=== PATIENT | male | born 1945 | race Caucasian/White ===

== ENCOUNTER 2018-06-14 10:11 | Day surgery (SDC) | payer MEDICARE ==
[~2018-06-14] VITALS: Ht 180.3 cm; Wt 66.3 kg
[2018-06-14] MEDS ORDERED: OMEP-110 PO (11:13)
[2018-06-14] MEDS ORDERED: CITA20TA6 PO (11:13)
[2018-06-14] MEDS ORDERED: CARV6.252 PO (11:13)
[2018-06-14] MEDS ORDERED: RISP0.2515 PO (11:13)
[2018-06-14] MEDS ORDERED: ATOR20TA86 PO (11:13)
[2018-06-14] MEDS ORDERED: LISI5TAB7 PO (11:13)
[2018-06-14] MEDS ORDERED: ASPI-496 PO (11:13)
[2018-06-14 11:16] VITALS: BP 111/77
[2018-06-14] MEDS ORDERED: LACTATED RINGERS 1,000 ML IV SCH (11:24)
[2018-06-14] MEDS ORDERED: EPHEDRINE 50 MG/ML, 1ML ONE (12:34)
[2018-06-14] MEDS ORDERED: PROPOFOL 10 MG/ML, 20ML ONE (12:34)
[2018-06-14 13:15] LABS: ALBUMIN 3.8 g/dL (3.4-5.0); ANION GAP 6 mmol/L (5-15); CALCIUM 9.2 mg/dL (8.5-10.1); CHLORIDE 116 mmol/L (98-107)
[2018-06-14 13:20] LABS: ALANINE AMINOTRANSFERASE 54 U/L (12-78); ALKALINE PHOSPHATASE 82 U/L (45-117); BILIRUBIN,TOTAL 0.6 mg/dL (0.2-1.0); CREATININE 2.31 mg/dL (0.7-1.3); TOTAL PROTEIN 7.5 g/dL (6.4-8.2)
[2018-06-14] MEDS ORDERED: MIDAZOLAM 1 MG/ML, 2ML IV PRN (13:30)
[2018-06-14] MEDS ORDERED: ONDANSETRON 2MG/ML, 2ML IV PRN (13:30)
[2018-06-14] MEDS ORDERED: MEPERIDINE/PF 25MG/0.5ML IVPush PRN (13:30)
[2018-06-14] MEDS ORDERED: LABETALOL 5MG/ML, 20ML IV PRN (13:30)
[2018-06-14] MEDS ORDERED: HALOPERIDOL 5 MG/ML IV PRN (13:30)
[2018-06-14] MEDS ORDERED: OXYcodone 5 MG/5 ML ORAL.SOL UDC PO PRN (13:30)
[2018-06-14] MEDS ORDERED: PROMETHAZINE 25 MG/ML, 1ML IV PRN (13:30)
[2018-06-14] MEDS ORDERED: hydrALAzine 20 MG/ML, 1ML IV PRN (13:30)
[2018-06-14] MEDS ORDERED: DIAZEPAM 5 MG/ML, 2ML IVPush PRN (13:30)
[2018-06-14] MEDS ORDERED: ALBUTEROL SULFATE 2.5 MG/3 ML NPPB PRN (13:30)
[2018-06-14] MEDS ORDERED: ACETAMINOPHEN 325 MG TABLET PO PRN (13:30)
[2018-06-14] MEDS ORDERED: EPHEDRINE 50 MG/ML, 1ML IVPush PRN (13:30)
[2018-06-14] MEDS ORDERED: MORPHINE SULFATE 4 MG/ML, 1ML IVPush PRN (13:30)
[2018-06-14] MEDS ORDERED: PROMETHAZINE 12.5 MG SUPP PR PRN (13:30)
[2018-06-14] MEDS ORDERED: HYDROmorphone 2 MG/ML, 1ML IVPush PRN (13:30)
[2018-06-14] MEDS ORDERED: ONDANSETRON ODT 8 MG PO PRN (13:30)
[2018-06-14] MEDS ORDERED: FENTANYL PF 100 MCG/2ML IV PRN (13:30)
== END 2018-06-14 14:45 | disposition home or self-care (01) ==
LOC: OUT 10:11
PROVIDERS: ATTEND Internal Medicine
DX: Z08 Encounter for follow-up examination after completed treatment for malignant neoplasm (principal); K20.0 Eosinophilic esophagitis; K64.8 Other hemorrhoids; Z85.038 Personal history of other malignant neoplasm of large intestine; I25.10 Atherosclerotic heart disease of native coronary artery without angina pectoris; I48.91 Unspecified atrial fibrillation; I11.9 Hypertensive heart disease without heart failure; Z90.49 Acquired absence of other specified parts of digestive tract; Z98.84 Bariatric surgery status; Z72.89 Other problems related to lifestyle; Z79.82 Long term (current) use of aspirin; Z87.891 Personal history of nicotine dependence; Z98.0 Intestinal bypass and anastomosis status
CPT/HCPCS: 36415; 43239; 45378; 80053; 88305; 93005; J2704; J7120

== ENCOUNTER → 2018-09-19 | Outpatient (CLI) | payer MEDICARE ==
[~2018-09-19] MED LIST: ASPI-496 PO; ATOR20TA86 PO; CARV6.252 PO; CITA20TA6 PO; LISI5TAB7 PO; OMEP-110 PO; REGADENOSON 0.4 MG/5 ML SYRINGE ONE; RISP0.2515 PO
== END | disposition home or self-care (01) ==
LOC: CFH 12:13
PROVIDERS: ATTEND Internal Medicine Cardiovascular Disease
DX: I10 Essential (primary) hypertension (principal); I48.0 Paroxysmal atrial fibrillation; I25.10 Atherosclerotic heart disease of native coronary artery without angina pectoris
CPT/HCPCS: 78452; 93017; A9502; J2785

== ENCOUNTER → 2018-10-23 | Outpatient (CLI) | payer MEDICARE ==
[~2018-10-23] MED LIST changes: -REGADENOSON 0.4 MG/5 ML SYRINGE ONE
== END | disposition home or self-care (01) ==
LOC: CFH 06:53
PROVIDERS: ATTEND Internal Medicine Nephrology
DX: N18.3 Chronic kidney disease, stage 3 (moderate) (principal)
CPT/HCPCS: 76770

== ENCOUNTER → 2018-11-20 | Outpatient (CLI) | payer MEDICARE | END | disposition home or self-care (01) | LOC: CVU 07:23 | PROVIDERS: ATTEND Internal Medicine Cardiovascular Disease | DX: I08.8 Other rheumatic multiple valve diseases (principal); I48.0 Paroxysmal atrial fibrillation; I10 Essential (primary) hypertension; E78.5 Hyperlipidemia, unspecified | CPT/HCPCS: 93306 ==